=== PATIENT | male | born 1980 | race American Indian/Alaskan Native ===

== ENCOUNTER 2018-03-30 15:50 | Emergency (ER) | payer OTHER ==
[2018-03-30 15:59] VITALS: BP 123/92
--- NOTE | 2018-03-30 16:01 | Emergency Department Report ---
Blank Doc - Documentation Documentation: 37 yo male presents to ED cc of left shoulder pain and difficulty lifting arm d ue to pain pt was bench prsseing at gym when he heard a pop 3 days ago and pain has gotten worse no obvious deformity XRAY ordered Reevaluate
[2018-03-30] MEDS ORDERED: TORADOL IM ONE (17:08)
--- NOTE | 2018-03-30 17:09 | Emergency Department Report ---
ED Upper Extremity Inj HPI - General Chief Complaint: Extremity Injury, Upper Stated Complaint: LEFT SHOULDER PAIN Time Seen by Provider: 03/30/18 15:56 Source: patient Mode of arrival: Ambulatory Limitations: No Limitations - History of Present Illness Initial Comments: Patient is a 37-year-old male that comes emergency complaints of left shoulder pain. Patient states he was at the gym 2 days ago lifting weights and injured his left shoulder. Patient states he heard a pop. Patient states his range of motion is decreased and the pain is constant. Patient denies chest pain. Patient has shortness of breath. Patient states he is able to move his shoulder but is difficulty due to pain. He states pain is 10 out of 10 MD Complaint: Injury to:: left, shoulder -: Sudden, Last night Other Extremity Injury: Shoulder: Left Other Injuries: none Place: other (gym) Severity scale (0 -10): 10 Improves With: immobilization, rest Worsens With: movement of extremity Context: injury, sports-related injury Associated Symptoms: denies other symptoms. denies: weakness, numbness, neck pain, suspects foreign body, nausea/vomiting, heard/felt popping sensat Treatments Prior to Arrival: cold therapy, NSAIDS - Related Data Home Medications Medication Instructions Recorded Confirmed Last Taken Phenytoin Sodium Extended 100 mg PO QHS 08/01/14 08/01/14 07/31/14 metFORMIN [Glucophage] 500 mg PO BID 08/01/14 08/01/14 07/31/14 Previous Rx's Medication Instructions Recorded Last Taken Type LORazepam [Ativan] 1 mg PO TID PRN #20 tablet 08/01/14 Unknown Rx traMADol [Ultram] 50 mg PO Q4HR PRN #12 tablet 03/30/18 Unknown Rx Allergies Allergy/AdvReac Type Severity Reaction Status Date / Time aspirin Allergy Nausea Verified 08/01/14 14:38 morphine Allergy Rash Verified 03/30/18 15:57 ED Review of Systems ROS: Stated complaint: LEFT SHOULDER PAIN Other details as noted in HPI Constitutional: denies: chills, fever Eyes: denies: eye pain, eye discharge, vision change ENT: denies: ear pain, throat pain Respiratory: denies: cough, shortness of breath, wheezing Cardiovascular: denies: chest pain, palpitations Endocrine: no symptoms reported Gastrointestinal: denies: abdominal pain, nausea, diarrhea Genitourinary: denies: urgency, dysuria Musculoskeletal: denies: back pain, joint swelling, arthralgia Skin: denies: rash, lesions Neurological: denies: headache, weakness, paresthesias Psychiatric: denies: anxiety, depression Hematological/Lymphatic: denies: easy bleeding, easy bruising ED Past Medical Hx - Past Medical History Previous Medical History?: Yes Hx Diabetes: Yes Hx Seizures: Yes Additional medical history: pancreatitis - Surgical History Past Surgical History?: No - Family History Family history: no significant - Social History Smoking Status: Never Smoker Substance Use Type: None - Medications Home Medications: Home Medications Medication Instructions Recorded Confirmed Last Taken Type LORazepam [Ativan] 1 mg PO TID PRN #20 tablet 08/01/14 Unknown Rx Phenytoin Sodium Extended 100 mg PO QHS 08/01/14 08/01/14 07/31/14 History metFORMIN [Glucophage] 500 mg PO BID 08/01/14 08/01/14 07/31/14 History traMADol [Ultram] 50 mg PO Q4HR PRN #12 tablet 03/30/18 Unknown Rx ED Physical Exam - General Limitations: No Limitations General appearance: alert, in no apparent distress - Head Head exam: Present: atraumatic, normocephalic - Eye Eye exam: Present: normal appearance - ENT ENT exam: Present: mucous membranes moist - Neck Neck exam: Present: normal inspection - Respiratory Respiratory exam: Present: normal lung sounds bilaterally. Absent: respiratory distress - Cardiovascular Cardiovascular Exam: Present: regular rate, normal rhythm. Absent: systolic murmur, diastolic murmur, rubs, gallop - GI/Abdominal GI/Abdominal exam: Present: soft, normal bowel sounds - Rectal Rectal exam: Present: deferred - Extremities Exam Extremities exam: Present: normal inspection, tenderness (left shoulder tenderness. Decreased range of motion due to pain) - Back Exam Back exam: Present: normal inspection - Neurological Exam Neurological exam: Present: alert, oriented X3 - Psychiatric Psychiatric exam: Present: normal affect, normal mood - Skin Skin exam: Present: warm, dry, intact, normal color. Absent: rash ED Course Vital Signs 03/30/18 15:57 Temperature 98.6 F Pulse Rate 94 H Respiratory 16 Rate Blood Pressure 123/92 O2 Sat by Pulse 99 Oximetry - Reevaluation(s) Reevaluation #1: Discussed all results with patient. Patient is stable for discharge. Patient responded well to Toradol. She states his pain is a 3-4 out of 10. Patient will be discharged home. Patient given discharge instructions. Patient was understanding of discharge instructions. 03/30/18 18:17 ED Medical Decision Making - Radiology Data Radiology results: report reviewed, image reviewed interpreted by me: No acute findings on shoulder x-ray FINAL REPORT EXAM: XR SHOULDER 2+V LT HISTORY: injury/pain to shoulder TECHNIQUE: 3 views of the left shoulder PRIORS: None. FINDINGS: There is no radiographic evidence of definite acute fracture or dislocation. No evidence of osseous lesion. Joint spaces are maintained. There is no evidence of significant degenerative arthrosis. IMPRESSION: No acute skeletal patholog - Medical Decision Making Patient is a 37-year-old male presents to emergency room with left shoulder pain. All findings consistent with shoulder sprain. Patient will be given discharge instructions and follow-up with orthopedist instructions. Medication instructions. Patient's x-ray was negative for fracture. - Differential Diagnosis shoulder pain. Shoulder strain. Fracture strain sprain Critical care attestation.: If time is entered above; I have spent that time in minutes in the direct care of this critically ill patient, excluding procedure time. ED Disposition Clinical Impression: Left shoulder pain Qualifiers: Chronicity: acute Qualified Code(s): M25.512 - Pain in left shoulder Shoulder strain Qualifiers: Encounter type: initial encounter Laterality: left Qualified Code(s): S46.912A - Strain of unspecified muscle, fascia and tendon at shoulder and upper arm level, left arm, initial encounter Disposition: TO HOME OR SELFCARE Is pt being admited?: No Does the pt Need Aspirin: No Condition: Stable Instructions: Rotator Cuff Injury (ED), Rotator Cuff Tendinitis (ED) Additional Instructions: Patient to follow-up with primary care in 2-3 days. Patient to follow-up with Dr. Lutz in 2-3 days. Patient to return to the ER if condition worsens. Patient take meds as directed. Patient to rest. Patient to avoid the gym. Patient said Tylenol or ibuprofen when necessary for pain Prescriptions: traMADol [Ultram] 50 mg PO Q4HR PRN #12 tablet PRN Reason: Pain Referrals: ROSARIO LINDA MD [Primary Care Provider] - 2-3 Days CHRISTEL LUTZ MD [Staff Physician] - 2-3 Days Time of Disposition: :23
--- NOTE | 2018-03-30 17:42 | XRay Report ---
FINAL REPORT EXAM: XR SHOULDER 2+V LT HISTORY: injury/pain to shoulder TECHNIQUE: 3 views of the left shoulder PRIORS: None. FINDINGS: There is no radiographic evidence of definite acute fracture or dislocation. No evidence of osseous lesion. Joint spaces are maintained. There is no evidence of significant degenerative arthrosis. IMPRESSION: No acute skeletal pathology
== END 2018-03-30 18:50 | disposition home or self-care (01) ==
LOC: ED 15:50
DX: S46.912A Strain of unspecified muscle, fascia and tendon at shoulder and upper arm level, left arm, initial encounter (principal); E11.9 Type 2 diabetes mellitus without complications; Z88.6 Allergy status to analgesic agent; X50.0XXA Overexertion from strenuous movement or load, initial encounter; Y93.89 Activity, other specified; Y92.89 Other specified places as the place of occurrence of the external cause; Y99.8 Other external cause status
CPT/HCPCS: 73030; 96372; 99283; J1885